=== PATIENT | female | born 1960 | race American Indian/Alaskan Native ===

== ENCOUNTER 2019-05-21 20:50 | Emergency (ER) | payer OTHER ==
--- NOTE | 2019-05-21 20:54 | Event Note ---
ED Screening Note ED Screening Note: [place] AND HAD NEAR SYNCOPE NO CP OR SOB 911 CALLED AND BP INC. This initial assessment/diagnostic orders/clinical plan/treatment(s) is/are subject to change based on patients health status, clinical progression and re- assessment by fellow clinical providers in the ED. Further treatment and workup at subsequent clinical providers discretion. Patient/guardian urged not to elope from the ED as their condition may be serious if not clinically assessed and managed. Initial orders include:
[2019-05-21 21:43] LABS: Basophils % (Auto) 0.9 % (0.0-1.8); Eosinophils % (Auto) 0.7 % (0.0-4.3); Hematocrit 37.3 % (30.3-42.9); Hemoglobin 12.5 gm/dl (10.1-14.3); Lymphocytes # (Auto) 2.1 K/mm3 (1.2-5.4); Lymphocytes % (Auto) 40.7 % (13.4-35.0); Mean Corpuscular HGB Conc 34 % (30-34); Mean Corpuscular Volume 82 fl (79-97); Monocytes # (Auto) 0.3 K/mm3 (0.0-0.8); Monocytes % (Auto) 6.5 % (0.0-7.3); Platelet Count 327 K/mm3 (140-440); Red Blood Count 4.54 M/mm3 (3.65-5.03); Red Cell Distribution Width 13.6 % (13.2-15.2)
[2019-05-21 21:58] LABS: Bacteria,Urine 1+ /HPF (Negative); Bilirubin,Urine NEG (Negative); Blood,Urine SM (Negative); Color,Urine Straw (Yellow); Mucus,Urine FEW /HPF; Urobilinogen,Urine < 2.0 mg/dL (<2.0)
--- NOTE | 2019-05-21 21:59 | XRay Report ---
PROCEDURE: XR CHEST ROUTINE 2V TECHNIQUE: PA and lateral chest radiographs were obtained. HISTORY: Chest Pain COMPARISONS: None. FINDINGS: Heart: Normal. Mediastinum/Vessels: Normal. Lungs/Pleural space: Normal. Bony thorax: No acute osseous abnormality. IMPRESSION: No acute cardiopulmonary process seen. This document is electronically signed by Cindy Morris MD., May 21 2019 09:57:01 PM ET
[2019-05-21 22:19] LABS: Alanine Aminotransferase 11 units/L (7-56); Albumin 4.3 g/dL (3.9-5); BUN/Creatinine Ratio 16; Blood Urea Nitrogen 11 mg/dL (7-17); Calcium 9.6 mg/dL (8.4-10.2); Hemolysis Index 1
--- NOTE | 2019-05-21 23:31 | Emergency Department Report ---
HPI - General Chief Complaint: Syncope Time Seen by Provider: 05/21/19 20:52 - HPI HPI: 58-year-old -[place] Citizen female presents to the emergency department with complaint of elevated blood pressure and after passing out just prior to arrival. The patient recently lost her sister and [place] when she [place] and was caught by a family member. She has a history of hypertension for which she usually takes metoprolol and amlodipine, but did not take the medications today, and presents with elevated blood pressure. She has a mild headache but denies any vision change, slurred speech, numbness, paresthesias, or any other neurological deficits. ED Past Medical Hx - Past Medical History Previous Medical History?: Yes Hx Hypertension: Yes - Surgical History Past Surgical History?: Yes Additional Surgical History: Fibroidectomy - Social History Smoking Status: Never Smoker Substance Use Type: None - Medications Home Medications: Home Medications Medication Instructions Recorded Confirmed Last Taken Type Metoprolol Xl [Metoprolol 50 mg PO QDAY #20 tablet 05/22/19 Unknown Rx SUCCINATE ER TAB] amLODIPine [Norvasc] 10 mg PO DAILY #20 tab 05/22/19 Unknown Rx ED Review of Systems ROS: Stated complaint: HBP Other details as noted in HPI Comment: All other systems reviewed and negative Constitutional: denies: chills, fever Eyes: denies: eye pain, vision change ENT: denies: ear pain, throat pain Respiratory: denies: cough, shortness of breath Cardiovascular: syncope. denies: chest pain Gastrointestinal: denies: abdominal pain, vomiting Genitourinary: denies: dysuria, frequency Musculoskeletal: denies: back pain, arthralgia Skin: denies: rash, lesions Neurological: headache. denies: weakness, numbness Physical Exam - Physical Exam Vital Signs: Vital Signs 05/21/19 21:12 Temperature 99 F Pulse Rate 87 Respiratory 16 Rate Blood Pressure 160/96 O2 Sat by Pulse 99 Oximetry Physical Exam: GENERAL: The patient is well-developed well-nourished. HENT: Normocephalic. Atraumatic. Patient has moist mucous membranes. EYES: Extraocular motions are intact. Pupils equal reactive to light bi laterally. Fatigable horizontal nystagmus. NECK: Supple. Trachea is midline. CHEST/LUNGS: Clear to auscultation. There is no respiratory distress noted. HEART/CARDIOVASCULAR: Regular. There is no tachycardia. There is no murmur. ABDOMEN: Abdomen is soft, nontender. Patient has normal bowel sounds. There is no abdominal distention. SKIN: Skin is warm and dry. NEURO: The patient is awake, alert, and oriented. The patient is cooperative. The patient has no focal neurologic deficits. The patient has normal speech. Cranial nerves II through XII grossly intact. No pronator drift. No dysmetria. MUSCULOSKELETAL: There is no tenderness or deformity. There is no evidence of acute injury. ED Course Vital Signs 05/21/19 21:12 Temperature 99 F Pulse Rate 87 Respiratory 16 Rate Blood Pressure 160/96 O2 Sat by Pulse 99 Oximetry ED Medical Decision Making - Lab Data Result diagrams: 05/21/19 21:21 05/21/19 21:21 - EKG Data -: EKG Interpreted by Me EKG shows normal: sinus rhythm, axis, intervals, QRS complexes, ST-T waves Rate: normal - EKG Data When compared to previous EKG there are: previous EKG unavailable Interpretation: normal EKG - Radiology Data Radiology results: report reviewed, image reviewed interpreted by me: Chest x-ray does not show any acute process. There are no pleural effusions, obvious pneumonia and there is no pneumothorax. PROCEDURE: CT HEAD/BRAIN WO CON TECHNIQUE: Computerized tomography of the head was performed without contrast material. CT DOSE LENGTH PRODUCT: 920.5 mGycm HISTORY: SYNCOPE AND HTN COMPARISONS: None . FINDINGS: There is no evidence of an acute intracranial process, intracranial hemorrhage or mass effect. The ventricles are normal size. 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 The bony structures are unremarkable. There is no evidence of fracture. IMPRESSION: 1. No evidence of an acute intracranial process, intracranial hemorrhage or mass effect. 2. No evidence of fracture.. This document is electronically signed by Lorna Bonner MD., May 22 2019 12:40:37 AM ET Transcribed By: ED Dictated By: LORNA BONNER MD Electronically Authenticated By: LORNA BONNER MD Signed Date/Time: 05/22/19 0042 - Medical Decision Making This patient presented to the emergency department with some elevated blood pressure and having a recent syncopal episode just prior to arrival. The patient's sister just and the patient has been very emotional, and this may be the reason for the patient passing out. However she complains of a headache and elevated blood pressure secondary to some recent medication noncompliance. For this reason a CT scan of the head without contrast was done that did not show any bleed, shift, mass, ischemia, or any other acute process. Patient's labs have been mostly unremarkable including CBC, metabolic panel, and troponin. Prior to the results of the CT scan coming back, the family came out saying that they have to leave so that they can do the in the morning. The patient has not had any further episodes of passing out. She has a mild headache still. Since the CT scan results have not come back yet, I discussed with them the concern that we do not yet have confirmation that there is no bleed, shift, mass, ischemia, or any other acute process. They still not willing to wait in the emergency department any further for the results. For this reason, the patient and her family have signed out AGAINST MEDICAL ADVICE. The patient is awake, alert and has a normal decision-making capacity. That being said, I did give the patient a prescription for her blood pressure medi cations as she does not live here and is out of her medication. She understands that she can return to the emergency department at any time if she changes her mind about further evaluation, has any worsening of her symptoms, or any acute distress. - Differential Diagnosis Grief, orthostatic hypotension, vasovagal, TIA Critical Care Time: No Critical care attestation.: If time is entered above; I have spent that time in minutes in the direct care of this critically ill patient, excluding procedure time. ED Disposition Clinical Impression: Syncope Qualifiers: Syncope type: unspecified Qualified Code(s): R55 - Syncope and collapse Hypertension Qualifiers: Hypertension type: essential hypertension Qualified Code(s): I10 - Essential (primary) hypertension Disposition: LEFT AGAINST MED ADVICE Is pt being admited?: No Condition: Stable Instructions: Syncope (ED), Hypertension (ED) Additional Instructions: Please follow up with a primary care physician as soon as possible. Return to the emergency department if you change your mind about further evaluation or with any further episodes of passing out, any acute distress. Prescriptions: Metoprolol Xl [Metoprolol SUCCINATE ER TAB] 50 mg PO QDAY #20 tablet amLODIPine [Norvasc] 10 mg PO DAILY #20 tab Referrals: ODESSA CAVAZOS MD [Primary Care Provider] - 3-5 Days Forms: AMA Form Time of Disposition: 04:46
[2019-05-22] MEDS ORDERED: NORVASC PO ONE (00:01)
--- NOTE | 2019-05-22 00:42 | Cat Scan Report ---
PROCEDURE: CT HEAD/BRAIN WO CON TECHNIQUE: Computerized tomography of the head was performed without contrast material. CT DOSE LENGTH PRODUCT: 920.5 mGycm HISTORY: SYNCOPE AND HTN COMPARISONS: None . FINDINGS: There is no evidence of an acute intracranial process, intracranial hemorrhage or mass effect. The ventricles are normal size. 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 The bony structures are unremarkable. There is no evidence of fracture. IMPRESSION: 1. No evidence of an acute intracranial process, intracranial hemorrhage or mass effect. 2. No evidence of fracture.. This document is electronically signed by Lorna Bonner MD., May 22 2019 12:40:37 AM ET
[2019-05-22 01:42] VITALS: BP 157/86
== END 2019-05-22 00:50 | disposition left against medical advice (07) ==
LOC: ED 20:50
DX: I10 Essential (primary) hypertension (principal); R55 Syncope and collapse; Z79.899 Other long term (current) drug therapy
CPT/HCPCS: 36415; 70450; 71046; 80053; 81001; 84484; 85025; 93005; 93010; 99285